=== PATIENT | male | born 1955 | race Hispanic/Latino ===

== ENCOUNTER 2017-12-12 07:33 | Emergency (ER) | payer BC ==
[2017-12-12 07:53] VITALS: TEMP 98.4
[2017-12-12] MEDS ORDERED: Oxycodone/Acetaminophen 5/325 mg Tab PO ONE (08:23)
[2017-12-12] MEDS ORDERED: Oxycodone/Acetaminophen 5/325 mg Tab ONE (08:32)
--- NOTE | 2017-12-12 09:00 | ED PDOC ---
HPI: General Adult Time Seen by Provider: 12/12/17 07:57 Chief Complaint (Nursing): Upper Extremity Problem/Injury Chief Complaint (Provider): Neck Pain History Per: Patient History/Exam Limitations: no limitations Onset/Duration Of Symptoms: Days (x1) Current Symptoms Are (Timing): Still Present Additional Complaint(s): 61 y/o male, with a PMHx of diabetes and spinal stenosis, presenting for evaluation of neck pain x1 day. Patient states last night be began to have severe neck pain exacerbated with movement of his neck. Patient reports taking Advil with no relief of symptoms. Patient denies any headache, dizziness, vision changes, numbness, tingling, weakness, or difficulty swallowing. Of note, patient reports he has spinal surgery scheduled with Dr. Shaw at [facility] in the next few weeks. Patient denies any prior history of neck pain. Dr. Monge Past Medical History Reviewed: Historical Data, Nursing Documentation, Vital Signs Vital Signs: Last Vital Signs Temp 98.4 F 12/12/17 07:54 Pulse 100 H 12/12/17 07:54 Resp 20 12/12/17 07:54 BP 132/84 12/12/17 07:52 Pulse Ox 98 12/12/17 07:54 - Medical History PMH: Back Problems, Crohn's Disease, HTN - Surgical History Surgical History: No Surg Hx - Family History Family History: States: Unknown Family Hx - Home Medications Home Medications: Ambulatory Orders Medication Instructions Recorded Cyclobenzaprine [Cyclobenzaprine 10 mg PO TID #15 tab 12/12/17 HCl] - Allergies Allergies/Adverse Reactions: Allergies Allergy/AdvReac Type Severity Reaction Status Date / Time No Known Allergies Allergy Verified 12/12/17 07:54 Review of Systems ROS Statement: Except As Marked, All Systems Reviewed And Found Negative Eyes: Negative for: Vision Change Cardiovascular: Negative for: Chest Pain Respiratory: Negative for: Shortness of Breath Musculoskeletal: Positive for: Neck Pain. Negative for: Back Pain Neurological: Negative for: Weakness, Numbness, Headache, Dizziness Physical Exam - Reviewed Nursing Documentation Reviewed: Yes Vital Signs Reviewed: Yes - Physical Exam Appears: Positive for: Non-toxic, No Acute Distress Head Exam: Positive for: ATRAUMATIC, NORMAL INSPECTION, NORMOCEPHALIC Eye Exam: Positive for: EOMI, Normal appearance, PERRL Neck: Positive for: Decreased ROM (secondary to pain). Negative for: Normal (right paracervical tenderness to palpation), Painless ROM Cardiovascular/Chest: Positive for: Regular Rate, Rhythm Respiratory: Positive for: Normal Breath Sounds. Negative for: Respiratory Distress Back: Positive for: Normal Inspection Extremity: Negative for: Normal ROM (limited ROM of right shoulder secondary to pain) Neurologic/Psych: Positive for: Alert, anesthesiology technologist II-XII (intact), Oriented (x3), Gait (steady). Negative for: Motor/Sensory Deficits, Aphasia, Facial Droop - ECG O2 Sat by Pulse Oximetry: 98 (RA) Pulse Ox Interpretation: Normal - Progress Re-evaluation Time: 11:39 Condition: Re-examined, Improved Medical Decision Making Medical Decision Makin Impression: Neck pain. Differential diagnoses include, but are not limited to cervical radiculopathy, cervical spinal stenosis, and musculoskeletal pain. Plan: -CT cervical spine w/o contrast -Glucose, POC -Flexeril 10mg PO -Percocet 1 tab -Reevaluation 1118 CT CERVICAL SPINE FINDINGS: VERTEBRAE: No fracture. Normal alignment. No destructive bony lesion. DISCS/SPINAL CANAL/NEURAL FORAMINA: No significant central canal or neural foraminal stenosis. Discs heights are grossly preserved. PARASPINAL SOFT TISSUES: Bilateral shotty appearing cervical lymph nodes. No suspicious lymphadenopathy noted. OTHER FINDINGS: Paranasal sinus inflammatory changes present. Bilateral C2-3 and to lesser extent C3-4 osseous productive apophyseal joint arthropathic changes present. There is perceived upper esophageal circumferential mild mural thickening. IMPRESSION: No fracture or lytic lesion. C2-3 and C3-4 degenerative apophyseal joint arthropathic changes. Paranasal sinus inflammatory changes. Apparent upper esophageal circumferential mild mural thickening. Clinical significance, if any-is unknown. Correlate clinically. Scribe Attestation: Documented by Kendell Patel, acting as a scribe for Joan Castrejon MD. Provider Scribe Attestation: All medical record entries made by the Scribe were at my direction and personally dictated by me. I have reviewed the chart and agree that the record accurately reflects my personal performance of the history, physical exam, medical decision making, and the department course for this patient. I have also personally directed, reviewed, and agree with the discharge instructions and disposition. Disposition - Clinical Impression Clinical Impression: Neck pain - Patient ED Disposition Is Patient to be Admitted: No Doctor Will See Patient In The: Office Counseled Patient/Family Regarding: Studies Performed, Diagnosis, Need For Followup - Disposition Disposition: Routine/Home Disposition Time: 11:40 Condition: GOOD Additional Instructions: SINAN ARIAS, thank you for letting us take care of you today. Your provider was Joan Castrejon MD and you were treated for NECK PAIN. The emergency medical care you received today was directed at your acute symptoms. If you were prescribed any medication, please fill it and take as directed. It may take several days for your symptoms to resolve. Return to the Emergency Department if your symptoms worsen, do not improve, or if you have any other problems. Please contact your doctor or call one of the physicians/clinics you have been referred to that are listed on the Patient Visit Information form that is included in your discharge packet. Bring any paperwork you were given at discharge with you along with any medications you are taking to your follow up visit. Our treatment cannot replace ongoing medical care by a primary care provider outside of the emergency department. Thank you for allowing the [facility] team to be part of your care today. If you had an X-Ray or CT scan: A Radiologist will review the ED reading if any change in treatment is needed we will contact you. If you had a blood, urine, or wound culture: It will take several days for the results, if any change in treatment is needed we will contact you. If you had an STI test: It will take 48 hours for the results. Please call after 1 week if you have not heard back. Prescriptions: Cyclobenzaprine [Cyclobenzaprine HCl] 10 mg PO TID #15 tab Instructions: Neck Pain Forms: [facility] ED School/Work Excuse
--- NOTE | 2017-12-12 11:22 | CT ---
Date of service: 12/12/2017 PROCEDURE: CT Cervical Spine without contrast HISTORY: neck pain COMPARISON: None available. TECHNIQUE: Axial computed tomography images were obtained of the cervical spine without the use of intravenous contrast. Coronal and sagittal reformatted images were created and reviewed. Radiation dose: Total exam DLP = 414 mGy-cm. This CT exam was performed using one or more of the following dose reduction techniques: Automated exposure control, adjustment of the mA and/or kV according to patient size, and/or use of iterative reconstruction technique. FINDINGS: VERTEBRAE: No fracture. Normal alignment. No destructive bony lesion. DISCS/SPINAL CANAL/NEURAL FORAMINA: No significant central canal or neural foraminal stenosis. Discs heights are grossly preserved. PARASPINAL SOFT TISSUES: Bilateral shotty appearing cervical lymph nodes. No suspicious lymphadenopathy noted. OTHER FINDINGS: Paranasal sinus inflammatory changes present. Bilateral C2-3 and to lesser extent C3-4 osseous productive apophyseal joint arthropathic changes present. There is perceived upper esophageal circumferential mild mural thickening. IMPRESSION: No fracture or lytic lesion. C2-3 and C3-4 degenerative apophyseal joint arthropathic changes. Paranasal sinus inflammatory changes. Apparent upper esophageal circumferential mild mural thickening. Clinical significance, if any-is unknown. Correlate clinically.
[2017-12-12 11:49] VITALS: BP 130/76; PULSE 78; RESP 19; O2SAT 99
== END 2017-12-12 11:50 | disposition home or self-care (01) ==
LOC: H.ER 07:33
DX: M54.2 Cervicalgia (principal); E11.9 Type 2 diabetes mellitus without complications; I10 Essential (primary) hypertension; K50.90 Crohn's disease, unspecified, without complications; M48.00 Spinal stenosis, site unspecified